=== PATIENT | male | born 1970 | race Caucasian/White ===

== ENCOUNTER 2021-09-11 10:41 | Emergency (ER) | payer BC, SELFPAY ==
--- NOTE | ~2021-09-11 | XR_ITS ---
EXAMINATION: XR lumbar spine min 4V DATE: 09/11/2021 12:02 INDICATION: Severe low back pain and left leg radiculopathy TECHNIQUE: Anteroposterior, lateral, and bilateral oblique views of the lumbar spine, and cone-down l ateral view of the lumbosacral junction were obtained. COMPARISON: None. FINDINGS: 9 degrees lumbar levocurvature. The degree anterolisthesis L2 on L3 and 3 mm retrolisthesis L3 on L4 and L4 on L5. Vertebral body heights are normal. Mild disc height loss at L1-L2, L3-L4 and L4-L5. The L5-S1 disc space is not clearly visualized and is either severely narrowed or more likely fused. Mod erate facet osteoarthritis bilaterally at L5-S1 Mild facet osteoarthritis at multiple additional leve ls in the lumbar and lower thoracic spine with lower lumbar predominance. No pars interarticularis de fects. Mild bilateral sacroiliitis. IMPRESSION: 1. Severely narrowed versus more likely fused L5-S1 disc space with moderate bilateral facet osteoart hritis at this level. 2. Otherwise mild lumbar spondylosis with mild levocurvature. Reviewed, dictated and finalized at location A. ATION NURSE IMPRESSION: 1. Severely narrowed versus more likely fused L5-S1 disc space with moderate bi lateral facet osteoarthritis at this level. 2. Otherwise mild lumbar spondylosis with mild levocurvature.
[2021-09-11 10:44] VITALS: BP 165/96; PULSE 80; RESP 16; TEMP 36.4; O2SAT 99
[2021-09-11] MEDS: KETOROLAC (*BKC) 60 MG/2 ML VIAL IM (11:48)
[2021-09-11] MEDS: methylPREDNISolone SOD SUCC 125 MG VIAL IM (11:49)
--- NOTE | 2021-09-11 12:54 | ED.GENADULT ---
HPI - General Adult General Chief complaint: Extremity Injury, Lower Stated complaint: thigh pain Time Seen by Provider: 09/11/21 11:15 Source: patient Mode of arrival: ambulatory Limitations: no limitations History of Present Illness HPI narrative: Patient is a 50-year-old male presenting with chief complaint of low back pain with radicular symptoms down his left leg. Patient reports that he has been having issues on and off for the past 2 months. Patient reports that he has been working with a chiropractor over the past month but has not noted great improvement. Patient denies falls or direct trauma to his back causing his symptoms. Patient denies any loss of bowel or bladder function or saddle paresthesias. Patient denies prior back fractures or surgeries. Patient denies history of diabetes or renal insufficiency. Related Data Allergies Allergy/AdvReac Type Severity Reaction Status Date / Time No Known Allergies Allergy Unverified 09/13/19 11:10 Review of Systems Review of Systems: CONSTITUTIONAL: Denies fever, chills, or sweats. EYES: Denies visual changes, redness, or discharge. ENT: Denies rhinorrhea, congestion, sore throat, or otalgia. CARDIOVASCULAR: Denies chest pain, palpitations, or edema. RESPIRATORY: Denies cough or dyspnea. GASTROINTESTINAL: Denies abdominal pain, nausea, vomiting, or diarrhea. GENITOURINARY: Denies dysuria or hematuria. SKIN: Denies rash or itching. MUSCULOSKELETAL: Reports back pain, denies joint pain or myalgia. NEUROLOGIC: Denies headache, numbness, dizziness, or weakness. PSYCHIATRIC: Denies anxiety or depression. [facility] Past Medical History Medical History (Updated 09/11/21 @ 13:02 by Julian Marin PA-C) High risk medication use Obesity (BMI 30-39.9) Psoriasis Social History Social History Smoking status: Former smoker Smoking end date: 09/01/02 Alcohol intake: current Exam Narrative: GENERAL: Well-appearing, well-nourished, and in no acute distress. HEAD: Normocephalic, atraumatic. EYES: PERRLA and EOMI. CHEST: Clear to auscultation. No respiratory distress. No wheezes rales or rhonchi HEART: Regular rate and rhythm. No murmur heard. Normal peripheral pulses. BACK: No vertebral point tenderness. Gait steady. Pain elicited with palpation of the left SI. Declines laying flat for straight leg raise test due to pain. EXTREMITIES: Normal range of motion. No edema. SKIN: Warm, dry, no rash. NEURO: No focal deficits. Alert and oriented x3. PSYCH: Normal mood and affect. Course Vital Signs Vital signs: Vital Signs Temperature 97.5 F L 09/11/21 10:44 Pulse Rate 80 09/11/21 10:44 Respiratory Rate 16 09/11/21 10:44 Blood Pressure 165/96 H 09/11/21 10:44 Pulse Oximetry 99 09/11/21 10:44 Temperature 97.5 F L 09/11/21 10:44 Pulse Rate 80 09/11/21 10:44 Respiratory Rate 16 09/11/21 10:44 Blood Pressure 165/96 H 09/11/21 10:44 Pulse Oximetry 99 09/11/21 10:44 Medical Decision Making MDM Narrative Medical decision making narrative: Patient reports improvement in back pain with Solu-Medrol and Toradol injections. Patient instructed of the x-ray findings and the need to follow-up with his primary care for further investigation into his symptoms. Discussed with patient that MRI may be needed however cannot be performed emergently in the emergency department. Patient has been instructed of the importance of following up with his primary care. Patient has been instructed to return to emergency department should he develop any emergent symptoms.patients pain is positional in nature and localized to back without signs of cord compression or cauda equina based on neurological exam, skeletal exam and history. No fever or other significant factors to suggest osteomyelitis or spinal epidural abscess. No symptoms or signs to suggest pain is referred from abdominal or / cardiopulmonary sources. No pulsatile masses noted on exam. Patient ambulat
== END 2021-09-11 13:23 | disposition home or self-care (01) ==
PROVIDERS: Emergency Provider Emergency Medicine; PCP Internal Medicine
DX: M47.26 Other spondylosis with radiculopathy, lumbar region (principal); E66.9 Obesity, unspecified; Z68.38 Body mass index [BMI] 38.0-38.9, adult; Z87.891 Personal history of nicotine dependence
CPT/HCPCS: 72110; 96372; 99284; J1885; J2930

== ENCOUNTER 2022-04-22 13:32 | Outpatient (CLI) | payer BC, SELFPAY ==
[2022-04-22 19:38] LABS: Basophils Absolute Auto 0.1 K/mm3 (0.0-0.1); Basophils Percent Auto 0.8 % (0.2-1.2); Eosinophils Absolute Auto 0.2 K/mm3 (0-0.3); Eosinophils Percent Auto 2.4 % (0-4.4); Hematocrit 47.7 % (42.0-52.0); Immature Granulocyte Absolute 0.05 K/mm3 (0.00-0.031); Immature Granulocyte Percent A 0.5 % (0-0.5); Lymphocytes Absolute Auto 1.83 K/mm3 (0.9-3.2); Lymphocytes Percent Auto 19.3 % (18.3-44.2); Mean Corpuscular HGB Conc 33.5 g/dl (32-36); Mean Corpuscular Hemoglobin 31.4 pg (26-34); Mean Corpuscular Volume 93.7 fl (80-100); Mean Platelet Volume 10.7 fl (7.4-10.4); Monocytes Absolute Auto 0.9 K/mm3 (0.1-0.6); Monocytes Percent Auto 9.5 % (2.6-8.5); Neutrophils Absolute Auto 6.4 K/mm3 (1.3-6.7); Neutrophils Percent Auto 67.5 % (45.5-73.1); Platelet Count Result 312 k/mm3 (150-375); Red Blood Count 5.09 M/mm3 (4.6-6.20); Red Cell Distribution Width 13.7 % (11.5-14.5); White Blood Count 9.5 K/mm3 (4.5-10.0)
[2022-04-22 19:58] LABS: Alanine Aminotransferase 40 U/L (6-50); Albumin Level 4.3 g/dL (3.5-5.1); Alkaline Phosphatase 56 U/L (38-126); Anion Gap 10 mmol/L (8-16); Aspartate Amino Transferase 42 U/L (17-59); Bilirubin,Total 0.6 mg/dL (0.2-1.3); Blood Urea Nitrogen 10 mg/dL (9-20); Carbon Dioxide 25 mmol/L (22-30); Chloride 103 mmol/L (98-107); Cholesterol 156 mg/dL (0-200); Estimated Glomerular Filt Rate > 60; Glucose 103 mg/dL (65-110); HDL Direct 36 mg/dL; Potassium 4.4 mmol/L (3.4-5.0); Sodium 138 mmol/L (137-145); Triglycerides 195 mg/dL (<150)
[2022-04-22 20:09] LABS: LDL Cholesterol Direct 87 mg/dL
[2022-04-22 20:25] LABS: Prostate Specific Antigen 0.3 ng/mL (< OR = 4.0)
== END 2022-04-22 13:33 | disposition home or self-care (01) ==
LOC: ANHGOSHLAB 13:35
PROVIDERS: PCP Internal Medicine; Visit Provider Internal Medicine
DX: Z13.228 Encounter for screening for other metabolic disorders (principal); Z79.899 Other long term (current) drug therapy; Z12.5 Encounter for screening for malignant neoplasm of prostate; E66.9 Obesity, unspecified
CPT/HCPCS: 36415; 80053; 80061; 84153; 85025; G0103